=== PATIENT | female | born 2000 | race Two or more races ===

== ENCOUNTER 2021-07-24 07:24 | Emergency (ER) | payer OTHER ==
[~2021-07-24] VITALS: Ht 162.6 cm; Wt 120.2 kg
[2021-07-24 07:27] VITALS: BP 155/91
[2021-07-24] MEDS ORDERED: CEPH-509 PO (08:27)
== END 2021-07-24 08:32 | disposition home or self-care (01) ==
LOC: ER 07:24
DX: H66.92 Otitis media, unspecified, left ear (principal); N39.0 Urinary tract infection, site not specified; R59.9 Enlarged lymph nodes, unspecified
CPT/HCPCS: 81002; 81025